=== PATIENT | male | born 1965 | race African-American/Black ===

== ENCOUNTER 2017-09-04 02:46 | Emergency (ER) | payer MEDICAID, MEDICARE ==
[~2017-09-04] VITALS: Ht 172.7 cm; Wt 65.0 kg
[2017-09-04] MEDS ORDERED: IBUPROFEN 800MG TABLET PO ONE (06:30)
[2017-09-04 06:55] VITALS: BP 123/75
== END 2017-09-04 07:05 | disposition home or self-care (01) ==
LOC: ER 03:26
DX: S50.12XA Contusion of left forearm, initial encounter (principal); F17.200 Nicotine dependence, unspecified, uncomplicated; W20.8XXA Other cause of strike by thrown, projected or falling object, initial encounter; Y93.89 Activity, other specified; Y92.89 Other specified places as the place of occurrence of the external cause; Y99.8 Other external cause status
CPT/HCPCS: 99283; A4565

== ENCOUNTER 2021-05-30 03:41 | Emergency (ER) | payer MEDICARE, OTHER ==
[~2021-05-30] VITALS: Ht 167.6 cm; Wt 69.0 kg
[2021-05-30] MEDS ORDERED: BACITRACIN 15GM TUBE TOP ONE (04:30)
[2021-05-30] MEDS ORDERED: IBUPROFEN 800MG TABLET PO ONE (04:30)
[2021-05-30 04:36] VITALS: BP 130/88
[2021-05-30] MEDS ORDERED: IBUP-2029 MT (05:57)
== END 2021-05-30 06:20 | disposition home or self-care (01) ==
LOC: ER 03:41
DX: S80.11XA Contusion of right lower leg, initial encounter (principal); M25.461 Effusion, right knee; V19.9XXA Pedal cyclist (driver) (passenger) injured in unspecified traffic accident, initial encounter; Y93.55 Activity, bike riding; Y92.9 Unspecified place or not applicable; Y99.9 Unspecified external cause status; Z94.5 Skin transplant status; Z98.890 Other specified postprocedural states
CPT/HCPCS: 73562; 73590; 99284

== ENCOUNTER 2021-06-05 04:44 | Emergency (ER) | payer OTHER ==
[~2021-06-05] VITALS: Ht 167.6 cm; Wt 68.0 kg
[~2021-06-05 04:44] MED LIST: IBUP-2029 MT
[2021-06-05] MEDS ORDERED: ONDA4TAB5 PO (05:35)
[2021-06-05] MEDS ORDERED: ONDANSETRON HCL 4MG TABLET PO ONE (05:45)
[2021-06-05 05:51] VITALS: BP 120/70
== END 2021-06-05 06:23 | disposition home or self-care (01) ==
LOC: ER 04:44
DX: F11.23 Opioid dependence with withdrawal (principal); Z98.1 Arthrodesis status
CPT/HCPCS: 99283; Q0162